=== PATIENT | female | born 1950 | race Native Hawaiian/Other Pacific Islander ===

== ENCOUNTER 2020-08-21 08:00 | Outpatient (CLI) | payer OTHER | END 2020-08-21 19:59 | disposition home or self-care (01) | LOC: INF 08:00 | PROVIDERS: ATTEND Internal Medicine | DX: Z23 Encounter for immunization (principal) | CPT/HCPCS: 96372 ==

== ENCOUNTER 2020-09-12 08:05 | Outpatient (CLI) | payer OTHER | END 2020-09-12 19:20 | disposition home or self-care (01) | LOC: INF 08:05 | PROVIDERS: ATTEND Internal Medicine | DX: Z23 Encounter for immunization (principal) | CPT/HCPCS: 96372 ==